=== PATIENT | male | born 1950 | race Caucasian/White ===

== ENCOUNTER 2016-10-09 21:58 | Inpatient (IN) | payer MEDICARE, OTHER ==
[~2016-10-09] VITALS: Ht 162.6 cm; Wt 55.5 kg
[2016-10-09] VITALS (42 sets, daily range): BP systolic 191; BP diastolic 98; PULSE 98; TEMP 98.3; O2SAT 87–95
[2016-10-10] VITALS (872 sets, daily range): BP systolic 108–151; BP diastolic 52–85; PULSE 93–110; TEMP 97–98.6; O2SAT 86–99
[2016-10-10] MEDS ORDERED: RT SPIRIVA18 MCG IH (00:39)
[2016-10-10] MEDS ORDERED: LIPITOR20 MG PO (00:40)
[2016-10-10] MEDS ORDERED: PRINIVIL40 MG PO (00:40)
[2016-10-10] MEDS ORDERED: MUCUS RELIEF200 MG PO (00:41)
[2016-10-10] MEDS ORDERED: ASPIRIN 32325 MG/TAB PO (00:42)
[2016-10-10] MEDS ORDERED: GLUCOPHAGE1000 MG PO (00:42)
[2016-10-10 01:55] LABS: ARTERIAL BLD GAS O2 SATURATION 91.9 % (92-100); ARTERIAL BLD GAS TCO2 CT 30.2; ARTERIAL BLOOD GAS HCO3 28.7 meq/L (22-26); ARTERIAL BLOOD GAS PO2 60.8 mmHg (80-100); ARTERIAL BLOOD GAS PO2T 60.8 (80-100); OXYHEMOGLOBIN 89.1 %
[2016-10-10 01:56] LABS: ALLEN TEST YES; ALLENS TEST RESULT PASS; ATS? YES
[2016-10-10 02:48] LABS: B-TYPE NATRIURETIC PEPTIDE 68 pg/mL (0-125); TROPONIN-I < 0.012 ng/mL (0.000-0.034)
[2016-10-10 04:47] LABS: ARTERIAL BLD GAS O2 SATURATION 91.5 % (92-100); ARTERIAL BLD GAS TCO2 CT 26.4; ARTERIAL BLOOD GAS BASE EXCESS 0.3 (-2-2); ARTERIAL BLOOD GAS HCO3 25.1 meq/L (22-26); ARTERIAL BLOOD GAS PO2 61.9 mmHg (80-100); ARTERIAL BLOOD GAS PO2T 61.9 (80-100); OXYHEMOGLOBIN 89.5 %
[2016-10-10 04:48] LABS: ALLEN TEST YES; ALLENS TEST RESULT PASS; ATS? YES
[2016-10-10 05:57] LABS: HEMATOCRIT 47.2 % (42.0-52.0); HEMOGLOBIN 15.5 g/dl (13.5-18.0); MEAN CELL VOLUME 92 fl (80.0-100.0); MEAN CORPUSCULAR HEMOGLOBIN 30 pg (27.0-31.0); MEAN CORPUSCULAR HGB CONC 33 g/dl (33.0-37.0); MEAN PLATELET VOLUME 9.5 fl (7.4-10.4); PLATELET COUNT 193 K/mm3 (130-400); RED BLOOD COUNT 5.11 M/mm3 (4.20-5.60); REDCELL DISTRIBUTION WIDTH-CV 13.3 % (11.5-14.5); WHITE BLOOD COUNT 4.5 K/mm3 (4.8-10.8)
[2016-10-10 06:06] LABS: ADD PATHOLOGY DIFF REVIEW NO
[2016-10-10 06:07] LABS: CALCIUM 9.4 mg/dL (8.4-10.2); CREATININE, serum 0.72 mg/dL (0.66-1.25); POTASSIUM 4.2 mmol/L (3.4-5.0)
[2016-10-10 06:17] LABS: BAND 10 % (0-10); NEUTROPHILS 84 % (42.0-75.2); PLATELET ESTIMATE NORMAL (NORMAL); TOTAL CELLS COUNTED 100
[2016-10-10 08:53] LABS: PH 5 (5-8); SQUAMOUS EPITHELIAL None Seen /hpf; URINE APPEARANCE Clear; URINE BACTERIA None Seen /hpf; URINE BILIRUBIN Negative (NEGATIVE); URINE BLOOD Negative (NEGATIVE); URINE COLOR Yellow; URINE GLUCOSE 3+ (NEGATIVE); URINE KETONE Negative (NEGATIVE); URINE UROBILINOGEN Negative (NEGATIVE); URINE WBC 0-2 /hpf
[2016-10-11 02:28] VITALS: BP 92/32; PULSE 57; TEMP 98.7
[2016-10-11 07:44] VITALS: BP 94/57; PULSE 53; TEMP 97.9
[2016-10-11 11:20] VITALS: BP 120/60; PULSE 93; TEMP 98
[2016-10-11] MEDS ORDERED: LEVAQUIN 750MG750 M1 PO (15:37)
[2016-10-11] MEDS ORDERED: MUCINEX D1 TER PO (15:42)
[2016-10-11] MEDS ORDERED: RT ADVAIR 228 DISKUS IH (15:43)
[2016-10-11] MEDS ORDERED: MEDROL 4MG DOSPA4 MG PO (15:43)
== END 2016-10-11 17:22 | disposition home or self-care (01) | DRG 189 ==
LOC: IMCU 21:58 → MEDICAL 10-10 15:26
PROVIDERS: Nurse Practitioner Family
DX: J96.02 Acute respiratory failure with hypercapnia (principal); J44.1 Chronic obstructive pulmonary disease with (acute) exacerbation; J96.01 Acute respiratory failure with hypoxia; I10 Essential (primary) hypertension; E11.9 Type 2 diabetes mellitus without complications; F17.210 Nicotine dependence, cigarettes, uncomplicated; E78.5 Hyperlipidemia, unspecified; K40.90 Unilateral inguinal hernia, without obstruction or gangrene, not specified as recurrent; R32 Unspecified urinary incontinence
CPT/HCPCS: 99222-AI; 99239; J1650; J1815; J1956; J2930; J7512